=== PATIENT | male | born 1935 | race Caucasian/White ===

== ENCOUNTER 2017-11-26 19:55 | Emergency (ER) | payer MEDICARE ==
[2017-11-26] MEDS ORDERED: Pantoprazole IV* 40 MG IV ONE (20:18)
[2017-11-26] MEDS ORDERED: NS 0.9% 1000 ML* 1,000 ML IV ONE (20:19)
[2017-11-26 20:33] LABS: ABS Basophils 0.1 10^3/ul (0-0.2); ABS Eosinophils 0.3 10^3/ul (0-0.6); ABS Lymphocytes 1.3 10^3/ul (1.0-4.8); ABS Monocytes 0.6 10^3/ul (0-0.8); ABS Neutrophils 4.8 10^3/ul (1.5-7.7); ABS Nucleated RBC 0.01 10^3/ul; Eosinophil % 3.9 % (0-6); Hematocrit 36 % (42-52); Hemoglobin 12.2 g/dl (14.0-18.0); Lymphocyte % 18.2 % (25-47); Mean Corpuscular HGB Conc 34 g/dl (31-36); Mean Corpuscular Hemoglobin 34 pg (27-31); Mean Corpuscular Volume 99 fL (80-94); Mean Platelet Volume 9 um3 (7.4-10.4); Nucleated Red Blood Cells % 0.1; Platelet Count 179 10^3/ul (150-450); Red Blood Count 3.63 10^6/ul (4.0-5.4); Red Cell Distribution Width 13 % (10.5-15)
[2017-11-26 20:41] LABS: INR 1.29 (0.77-1.02)
[2017-11-26 20:47] LABS: EGFR Non-African American 57.7 (>60)
[2017-11-26] MEDS ORDERED: NS 0.9% IVPB SCH (21:00)
[2017-11-26] MEDS ORDERED: Pantoprazole IV* 80 MG in NS 0.9% 250 ML* 250 ML IVPB SCH (21:00)
[2017-11-26] MEDS ORDERED: PANTOPRAZOLE IVPB SCH (21:00)
[2017-11-26] MEDS ORDERED: Ondansetron INJ* 2 MG/ML VIAL IV ONE (21:17)
[2017-11-26] MEDS ORDERED: IDARUCIZUMAB* 2.5 GM/50 ML VIAL IV ONE (21:20)
--- NOTE | 2017-11-26 21:41 | ED ---
Fly Ashraf Gabriel, scribed for Lexx Ledesma MD on 11/26/17 at 2026 . GI/ HPI - HPI Summary HPI Summary: This patient is a 82 year old M BIBA to [facility] accompanied by her step daughter with a chief complaint of hematemesis around an hour [employer]. Patient reports dizziness and a near syncopal episode that has resolved spontaneously. Patient states he threw up what amounted to around a drinking glass of blood; he says this has never happened previously. He denies alcohol use and any medical issues of the liver. He has A-Fib and is taking a blood thinner and Celebrex for back pain. His last BM was at 1100 today and he denies it being black or containing blood. - History of Current Complaint Chief Complaint: EDGIBleed Time Seen by Provider: 11/26/17 20:01 Stated Complaint: VOMITING BLOOD Hx Obtained From: Patient Onset/Duration: Started Hours Ago - 1 hour [employer], Still Present Timing: Constant Severity: Moderate Current Severity: None Pain Intensity: 0 Associated Signs and Symptoms: Positive: Hematemesis, Other: - dizziness. Negative: Blood w/Stool - Allergy/Home Medications Allergies/Adverse Reactions: Allergies Allergy/AdvReac Type Severity Reaction Status Date / Time Bee Venom Allergy Intermediate See Comment Verified 07/13/14 10:20 Ibuprofen Allergy Rash Verified 07/07/14 15:26 PMH/Surg Hx/FS Hx/Imm Hx Cardiovascular History: Reports: Hx Angina, Hx Atrial Fibrillation, Hx Coronary Artery Disease - CAUSES CHEST PAIN, Hx Hypercholesterolemia, Hx Hypertension - ON MEDS, Hx Peripheral Vascular Disease - [facility] GI History: Reports: Hx Gastrointestinal Bleed - new Musculoskeletal History: Reports: Hx Arthritis - Hands, Hx Back Problems Sensory History: Reports: Hx Cataracts - cataract surgery, Hx Contacts or Glasses Denies: Hx Hearing Aid Opthamlomology History: Reports: Hx Cataracts - cataract surgery, Hx Contacts or Glasses Neurological History: Reports: Hx Nerve Disease - PERIPHERAL NEUROPATHY - Surgical History Surgery Procedure, Year, and Place: [facility] 1992[place] [facility] [place] AGE 18, [facility]. VASECTOMY, AGE 38 Hx Anesthesia Reactions: No Infectious Disease History: No Infectious Disease History: Denies: Traveled Outside the [place] in Last 30 Days - Family History Known Family History: Negative: Seizure Disorder, Blood Disorder - Social History Lives: Alone Alcohol Use: Rare Substance Use Type: Reports: None Smoking Status (MU): Former Smoker Type: Cigarettes Amount Used/How Often: PACK A DAY Have You Smoked in the Last Year: No Review of Systems Gastrointestinal: Negative - Melena Positive: Other - hematemesis Neurological: Other - dizziness and near syncope All Other Systems Reviewed And Are Negative: Yes Physical Exam - Summary Physical Exam Summary: VITAL SIGNS: Reviewed. GENERAL: Patient is a well-developed male who is lying comfortable in the stretcher. Patient is not in any acute respiratory distress. Patient appears pallor. HEAD AND FACE: No signs of trauma. No ecchymosis, hematomas or skull depressions. No sinus tenderness. EYES: PERRLA, EOMI x 2, No injected conjunctiva, no nystagmus. EARS: Hearing grossly intact. Ear canals and tympanic membranes are within normal limits. MOUTH: Oropharynx within normal limits. NECK: Supple, trachea is midline, no adenopathy, no JVD, no carotid bruit, no c- spine tenderness, neck with full ROM. CHEST: Symmetric, no tenderness at palpation LUNGS: Clear to auscultation bilaterally. No wheezing or crackles. CVS: irregular and tachycardic, S1 and S2 present, no murmurs or gallops appreciated. ABDOMEN: Soft, non-tender.. No rebound no guarding, and no masses palpated. Bowel sounds are normal. Patient appears distended EXTREMITIES: FROM in all major joints, trace bilateral pedal edema, no cyanosis or clubbing. NEURO: Alert and oriented x 3. No acute neurological deficits. Speech is normal and follows commands. SKIN: Dry and warm Rectal exam: brown stool, no masses, sent to lab for occult Triage Information Reviewed: Yes Vital Signs On Initial Exam: Initial Vitals Temp Pulse Resp BP Pulse Ox 98.3 F 97 18 99/62 99 11/26/17 19:59 11/26/17 19:59 11/26/17 19:59 11/26/17 19:59 11/26/17 19:59 Vital Signs Reviewed: Yes - [place] Coma Scale Coma Scale Total: 15 Diagnostics - Vital Signs Vital Signs Temp Pulse Resp BP Pulse Ox 11/26/17 19:59 98.3 F 97 18 99/62 99 - Laboratory Result Diagrams: 11/26/17 20:23 11/26/17 20:23 Lab Statement: Any lab studies that have been ordered have been reviewed, and results considered in the medical decision making process. - EKG 20:47 Cardiac Rate: NL EKG Rhythm: Atrial Fibrillation - at 95 BPM EKG Interpretation: normal axis. no ischemic changes GIGU Course/Dx - Course Assessment/Plan: This patient is a 82 year old M BIBA to [facility] accompanied by her step daughter with a chief complaint of hematemesis around an hour [employer]. Patient reports dizziness and a near syncopal episode that has resolved spontaneously. Patient states he threw up what amounted to around a drinking glass of blood; he says this has never happened previously. He denies alcohol use and any medical issues of the liver. He has A-Fib and is taking a blood thinner and Celebrex for back pain. His last BM was at 1100 today and he denies it being black or containing blood. An EKG reveals A-Fib. Patient did have about 300cc of hematemesis in ER. There is no GI service available tonight there is no helicopter service due to weather. The patient will be transferred to [facility] for GI cloud consultant and will be given blood transfusion. The ambulance was called for transport. Test results with no significant abnormalities . In the ED course the patient was given Zofran, Protonix, IV fluids, [employer], and blood transfusion. 21:00 We discussed patient care with Tristan retail coordinator at the [facility] he stated he will inform GI and they will be contacting me shortly. 21:20 Discussed transfer plan with Tristan and he stated ICU from [facility] has accepted the patient for a GI bleed. Ranjan Hoff is the accepting doctor. Patient will be transferred for an upper GI bleed to a higher level of care at [facility] . The patient is agreeable with this plan. - Diagnoses Provider Diagnoses: Upper GI bleed Discharge - Discharge Plan Condition: Critical Disposition: TRANS HIGHER LVL OF CARE FAC Referrals: Luther Burrell MD [Primary Care Provider] - Consult Consult: 21:00 We discussed patient care with Tristan retail coordinator at the [facility] he stated he will inform GI and they will be contacting me shortly. 21:20 Discussed transfer plan with Tristan and he stated ICU from [facility] has accepted the patient for a GI bleed. Ranjan Hoff is the accepting doctor. The documentation as recorded by the scribFly zuniga Gabriel accurately reflects the service I personally performed and the decisions made by me, Lexx Ledesma MD.
[2017-11-26 22:22] VITALS: BP 96/47
== END 2017-11-26 22:33 | disposition short-term general hospital (02) ==
LOC: ED 19:55
DX: K92.2 Gastrointestinal hemorrhage, unspecified (principal); R42 Dizziness and giddiness; R55 Syncope and collapse; Z87.891 Personal history of nicotine dependence
CPT/HCPCS: 36415; 80053; 82270; 85025; 85610; 85730; 86850; 86900; 86901; 86922; 93005; 96374; 96375; 99285; J2405; P9040